=== PATIENT | female | born 1970 | race American Indian/Alaskan Native ===

== ENCOUNTER 2018-06-28 18:06 | Emergency (ER) | payer OTHER ==
[2018-06-28] MEDS ORDERED: ASPIRIN PO ONE (18:30)
[2018-06-28 19:47] LABS: Basophils # (Auto) 0.1 K/mm3 (0.0-0.1); Basophils % (Auto) 0.8 % (0.0-1.8); Eosinophils # (Auto) 0.2 K/mm3 (0.0-0.4); Eosinophils % (Auto) 3.1 % (0.0-4.3); Hemoglobin 13.4 gm/dl (10.1-14.3); Lymphocytes # (Auto) 2.1 K/mm3 (1.2-5.4); Lymphocytes % (Auto) 31.8 % (13.4-35.0); Mean Corpuscular HGB Conc 34 % (30-34); Mean Corpuscular Hemoglobin 30 pg (28-32); Mean Corpuscular Volume 91 fl (79-97); Monocytes # (Auto) 0.4 K/mm3 (0.0-0.8); Monocytes % (Auto) 6.7 % (0.0-7.3); Platelet Count 176 K/mm3 (140-440); Red Blood Count 4.42 M/mm3 (3.65-5.03); Red Cell Distribution Width 13.8 % (13.2-15.2)
[2018-06-28 20:09] LABS: BUN/Creatinine Ratio 11; Blood Urea Nitrogen 9 mg/dL (7-17); Calcium 9.4 mg/dL (8.4-10.2); Hemolysis Index 28
[2018-06-28] MEDS ORDERED: NORCO 5/325 PO ONE (22:32)
[2018-06-28] MEDS ORDERED: TORADOL IM ONE (22:32)
--- NOTE | 2018-06-28 22:41 | XRay Report ---
FINAL REPORT PROCEDURE: XR CHEST 1V AP TECHNIQUE: Chest radiograph anteroposterior view. CPT 83039 HISTORY: chest pain COMPARISON: No prior studies are available for comparison. FINDINGS: Heart: Normal. Mediastinum/Vessels: Normal. Lungs/Pleural space: Normal. Bony thorax: No acute osseous abnormality. Life support devices: None. IMPRESSION: No acute cardiopulmonary abnormality.
[2018-06-28 22:55] VITALS: BP 139/92
--- NOTE | 2018-06-28 23:07 | Emergency Department Report ---
HPI - General Chief Complaint: Chest Pain Time Seen by Provider: 06/28/18 22:16 - HPI HPI: The patient is a 48-year-old female who presents for evaluation of left-sided shoulder pain. The patient reports developing of left sided neck pain 2 days ago. Her neck pain is sharp in quality, moderate severity, radiating to the left shoulder and left upper chest, exacerbated with turning of the head to the left. The patient denies trauma or injury to the left shoulder, fever, chills, night sweats, dyspnea, cough, hemoptysis, back pain, severe vomiting, paresthesia, motor deficit, or other focal neurological deficit. ED Past Medical Hx - Past Medical History Hx Hypertension: Yes Hx Congestive Heart Failure: No Hx Diabetes: No Hx Deep Vein Thrombosis: Yes (legs, hand) Hx Pulmonary Embolism: Yes (2006) Hx Renal Disease: No Hx Asthma: Yes (steroids only once in last year) Hx COPD: No Additional medical history: Dysfunctional uterine bleeding - Surgical History Additional Surgical History: left knee athroscopy, d&c - Social History Smoking Status: Never Smoker Substance Use Type: None - Medications Home Medications: Home Medications Medication Instructions Recorded Confirmed Last Taken Type Pantoprazole [Protonix] 40 mg PO QDAY #30 tablet 08/26/17 Unknown Rx HYDROcodone/APAP 5-325 [[place] 1 each PO Q6HR PRN #12 tablet 06/28/18 Unknown Rx 5/325] Ibuprofen [Motrin] 800 mg PO Q8HR PRN #12 tablet 06/28/18 Unknown Rx ED Review of Systems ROS: Stated complaint: CHEST PAIN/BODY PAIN Other details as noted in HPI Constitutional: denies: fever ENT: denies: throat or neck pain Respiratory: denies: cough, shortness of breath Cardiovascular: reports: chest pain Endocrine: denies unexplained weight loss or gain Gastrointestinal: denies: abdominal pain, nausea Genitourinary: denies: dysuria Musculoskeletal: denies: leg swelling Skin: denies: rash Neurological: denies: headache Hematological/Lymphatic: denies: easy bleeding or easy bruising Psych: denies sadness or hopelessness Physical Exam - Physical Exam Vital Signs: Vital Signs 06/28/18 18:25 Temperature 98.2 F Pulse Rate 76 Respiratory 18 Rate Blood Pressure 139/95 O2 Sat by Pulse 98 Oximetry Physical Exam: General: well-nourished, well-developed, no acute distress Head: Normocephalic, atraumatic Eyes: normal sclera ENT: Mucous membranes are pink and moist Neck: trachea midline, neck supple, No neck stiffness, no cervical adenopathy Respiratory: Breath sounds equal bilaterally, no wheezing, rales, or rhonchi Cardio: S1 and S2 present, no murmurs, rubs, gallops, capillary refill is brisk Abdomen: Normoactive bowel sounds, soft abdomen, no rigidity, no guarding or rebound tenderness Chest WALL/Back: No tenderness to palpation of the chest wall, left neck and shoulder pain reporduced with turning of the head to the left, and internal rotation and abduction of the left arm Musc: No pitting edema Skin: No rash Neuro: no facial drooping, normal speech Psych: Normal affect ED Course Vital Signs 06/28/18 18:25 Temperature 98.2 F Pulse Rate 76 Respiratory 18 Rate Blood Pressure 139/95 O2 Sat by Pulse 98 Oximetry ED Medical Decision Making - Lab Data Result diagrams: 06/28/18 18:56 06/28/18 18:56 - Medical Decision Making The patient was seen and examined by myself. The patient is placed on a hospital monitor and continuous pulse ox. On initial evaluation, the patient was found to be in no distress. The patient is given an IM dose of Toradol for her pain. EKG was negative for findings suggestive of acute cardiac infarct. Labs and imaging are obtained. Chest x-ray is negative for pneumothorax, focal consolidation, pulmonary vascular congestion, pleural effusion, or other obvious acute cardiopulmonary disease process. Lab results were non-concerning including levels of troponin, WBC, hemoglobin, hematocrit, electrolytes, renal function. The patient was reevaluated and reported that their symptoms were markedly improved. As the patient has a FRANSISCO risk score less than 2, and a well 's score less than 2, the patient is at low risk of ACS or pulmonary emboli etiology of their symptoms. The patient is stable for discharge with outpatient follow-up. The patient is given follow-up and return instructions. The patient expressed understanding and agreed with the plan. The patient is discharged in stable condition. Critical care attestation.: If time is entered above; I have spent that time in minutes in the direct care of this critically ill patient, excluding procedure time. ED Disposition Clinical Impression: Acute torticollis, Acute chest pain Disposition: TO HOME OR SELFCARE Is pt being admited?: No Does the pt Need Aspirin: No Condition: Stable Instructions: Chest Pain (ED), Spasmodic Torticollis (ED), Muscle Strain (ED) Referrals: PRIMARY CARE, [Primary Care Provider] - 3-5 Days Time of Disposition: 22:32
== END 2018-06-28 23:05 | disposition home or self-care (01) ==
LOC: ED 18:06
DX: M43.6 Torticollis (principal); R07.89 Other chest pain; I10 Essential (primary) hypertension; J45.909 Unspecified asthma, uncomplicated; Z86.718 Personal history of other venous thrombosis and embolism; Z86.711 Personal history of pulmonary embolism
CPT/HCPCS: 36415; 71045; 80048; 84484; 85025; 93005; 93010; 96372; 99284; J1885